=== PATIENT | female | born 1980 | race Asian ===

== ENCOUNTER 2016-11-29 13:10 | Inpatient (IN) | payer OTHER ==
[~2016-11-29] VITALS: Ht 162.6 cm; Wt 94.5 kg
[~2016-11-29 13:10] MED LIST: FER300 PO; IBUPROFEN800 MG PO; LAC PO; MAC100 PO; NEU300 PO
[2016-11-29 14:12] LABS: BASOPHIL % 0.5 % (0-2); PLATELET COUNT 329 x10^3mcL (130-400)
[2016-11-29 14:21] LABS: RED CELL DISTRIBUTION WIDTH 18.4 % (11.5-14.5)
[2016-11-29 14:22] LABS: CALCIUM 9.3 mg/dL (8.5-10.1); CARBON DIOXIDE 32.2 mmol/L (21-32); CHLORIDE SERUM 102 mmol/L (98-107); CREATININE SERUM 0.8 mg/dL (0.6-1.0); GFR1 > 60 mL/min; GLUCOSE SERUM 113 mg/dL (74-106); POTASSIUM SERUM 3.1 mmol/L (3.5-5.1); SODIUM SERUM 140 mmol/L (136-145)
[2016-11-29 14:27] LABS: ALBUMIN 3.7 g/dL (3.4-5.0); ALKALINE PHOSPHATASE 76 U/L (46-116); ALT/SGPT 17 U/L (14-59); AST/SGOT 11 U/L (15-37); BILIRUBIN TOTAL 0.42 mg/dL (0.20-1.00); TOTAL PROTEIN, SERUM 7.9 g/dL (6.4-8.2)
[2016-11-29 14:43] LABS: rbc morphology (normal/abnorm) ABNORMAL (NORMAL)
[2016-11-29 19:46] LABS: CHOLESTEROL/HDL RATIO 3.8; MAGNESIUM 1.8 mg/dL (1.8-2.4); PHOSPHOROUS 3.9 mg/dL (2.5-4.9)
[2016-11-29 19:53] LABS: T3 TOTAL 1.13 ng/mL
[2016-11-29 19:56] LABS: FREE T4 1.25 ng/dL (0.76-1.46); FREE THYROXINE INDEX 2.8 ug/dL (1.4-4.5); T4(THYROXINE) 8.8 ug/dL (4.7-13.3)
[2016-11-29 21:22] VITALS: BP 127/80
[2016-11-29] MEDS ORDERED: METFORMIN HCL1000 MG PO (21:47)
[2016-11-29 22:41] LABS: microscopic required? NO
[2016-11-29 22:47] LABS: urine erythrocyte NEGATIVE (NEGATIVE)
[2016-11-29 22:56] LABS: AMPHETAMINE QUAL UR NONE DETECTED (NEG <=1000)
[2016-11-30 00:29] VITALS: BP 115/67
[2016-11-30 01:00] VITALS: Ht 162.6 cm; Wt 94.5 kg
[2016-11-30 05:37] VITALS: BP 111/67
[2016-11-30 06:59] LABS: BASOPHIL % 0.2 % (0-2); PLATELET COUNT 352 x10^3mcL (130-400)
[2016-11-30 07:30] LABS: rbc morphology (normal/abnorm) ABNORMAL (NORMAL)
[2016-11-30 07:32] LABS: CALCIUM 8.8 mg/dL (8.5-10.1); CARBON DIOXIDE 27.2 mmol/L (21-32); CHLORIDE SERUM 103 mmol/L (98-107); CREATININE SERUM 0.6 mg/dL (0.6-1.0); GFR1 > 60 mL/min; GLUCOSE SERUM 145 mg/dL (74-106); POTASSIUM SERUM 3.7 mmol/L (3.5-5.1); SODIUM SERUM 138 mmol/L (136-145)
[2016-11-30 09:41] VITALS: BP 125/66
[2016-11-30 14:14] VITALS: BP 109/64
[2016-11-30 17:25] VITALS: BP 117/72
[2016-11-30 21:51] VITALS: BP 101/64
[2016-12-01 05:37] LABS: PLATELET COUNT 311 x10^3mcL (130-400)
[2016-12-01 06:02] LABS: ALBUMIN 3.1 g/dL (3.4-5.0); CALCIUM 8.5 mg/dL (8.5-10.1); CARBON DIOXIDE 27.8 mmol/L (21-32); CHLORIDE SERUM 107 mmol/L (98-107); CREATININE SERUM 0.7 mg/dL (0.6-1.0); GFR1 > 60 mL/min; GLUCOSE SERUM 151 mg/dL (74-106); SODIUM SERUM 141 mmol/L (136-145)
[2016-12-01 06:18] VITALS: BP 111/63
[2016-12-01 06:39] LABS: BASOPHIL % 0 % (0-2); RED CELL DISTRIBUTION WIDTH 18.8 % (11.5-14.5)
[2016-12-01 06:40] LABS: rbc morphology (normal/abnorm) ABNORMAL (NORMAL)
[2016-12-01 08:31] VITALS: BP 133/77
[2016-12-01 12:30] VITALS: BP 154/93
[2016-12-01 18:04] VITALS: BP 138/87
[2016-12-01 21:40] VITALS: BP 125/75
[2016-12-02 06:18] VITALS: BP 135/82
[2016-12-02 06:18] LABS: BASOPHIL % 0.2 % (0-2); PLATELET COUNT 262 x10^3mcL (130-400)
[2016-12-02 06:38] LABS: CARBON DIOXIDE 29.7 mmol/L (21-32); CHLORIDE SERUM 107 mmol/L (98-107); CREATININE SERUM 0.7 mg/dL (0.6-1.0); GFR1 > 60 mL/min; GLUCOSE SERUM 97 mg/dL (74-106); POTASSIUM SERUM 3.7 mmol/L (3.5-5.1); SODIUM SERUM 141 mmol/L (136-145)
[2016-12-02 06:39] LABS: RED CELL DISTRIBUTION WIDTH 19.7 % (11.5-14.5)
[2016-12-02 06:45] LABS: ALBUMIN 2.9 g/dL (3.4-5.0)
[2016-12-02 08:59] VITALS: BP 128/68
[2016-12-02 17:12] VITALS: BP 127/65
[2016-12-02 21:37] VITALS: BP 132/78
[2016-12-03 05:39] VITALS: BP 121/61
[2016-12-03 06:14] LABS: BASOPHIL % 0.3 % (0-2); PLATELET COUNT 239 x10^3mcL (130-400)
[2016-12-03 06:35] LABS: CALCIUM 8.2 mg/dL (8.5-10.1); CARBON DIOXIDE 31.4 mmol/L (21-32); CHLORIDE SERUM 105 mmol/L (98-107); CREATININE SERUM 0.6 mg/dL (0.6-1.0); GFR1 > 60 mL/min; GLUCOSE SERUM 102 mg/dL (74-106); POTASSIUM SERUM 3.5 mmol/L (3.5-5.1); SODIUM SERUM 142 mmol/L (136-145)
[2016-12-03 06:37] LABS: ALBUMIN 2.9 g/dL (3.4-5.0)
[2016-12-03 06:41] LABS: RED CELL DISTRIBUTION WIDTH 19.4 % (11.5-14.5)
[2016-12-03] MEDS ORDERED: COZAAR100 MG PO (10:05)
[2016-12-03] MEDS ORDERED: NATURAL IRON65 MG PO (10:05)
[2016-12-03] MEDS ORDERED: SINGULAIR10 MG PO (10:05)
[2016-12-03] MEDS ORDERED: VENTOLIN H0.09 MG/A1 INH (10:06)
[2016-12-03] MEDS ORDERED: QVAR INH (10:07)
[2016-12-03] MEDS ORDERED: HYDROCHLOROTHIA25 MG PO (10:08)
[2016-12-03] MEDS ORDERED: ZYRTEC10 MG PO (10:09)
[2016-12-03] MEDS ORDERED: NEU300 PO (10:09)
[2016-12-03] MEDS ORDERED: NIFEDIPINE60 MG PO (10:11)
[2016-12-03] MEDS ORDERED: SIMVASTATIN20 M1 PO (10:11)
[2016-12-03] MEDS ORDERED: PEPCID20 MG PO (10:12)
[2016-12-03] MEDS ORDERED: ZIT250 PO (10:14)
[2016-12-03] MEDS ORDERED: PREDNISONE10 MG PO (10:17)
[2016-12-03 10:59] VITALS: BP 113/72
[2016-12-03 11:02] VITALS: BP 113/72
[2016-12-03] MEDS ORDERED: LAC PO (11:54)
== END 2016-12-03 13:30 | disposition home or self-care (01) | DRG 140 ==
LOC: ED 13:10 → DU 18:43 → MU 18:43 → DU 19:56 → MU 11-30 17:25
PROVIDERS: Emergency Medicine; Family Medicine; ADMIT Family Medicine
DX: J44.0 Chronic obstructive pulmonary disease with (acute) lower respiratory infection (principal); N17.0 Acute kidney failure with tubular necrosis; J96.21 Acute and chronic respiratory failure with hypoxia; E87.3 Alkalosis; J18.9 Pneumonia, unspecified organism; E44.0 Moderate protein-calorie malnutrition; E11.9 Type 2 diabetes mellitus without complications; D64.9 Anemia, unspecified; I10 Essential (primary) hypertension; J44.1 Chronic obstructive pulmonary disease with (acute) exacerbation; E78.5 Hyperlipidemia, unspecified; E87.6 Hypokalemia; M54.12 Radiculopathy, cervical region; G47.33 Obstructive sleep apnea (adult) (pediatric); E66.9 Obesity, unspecified; Z68.35 Body mass index [BMI] 35.0-35.9, adult; K21.9 Gastro-esophageal reflux disease without esophagitis; M79.2 Neuralgia and neuritis, unspecified; Z88.8 Allergy status to other drugs, medicaments and biological substances; E78.1 Pure hyperglyceridemia; Z90.49 Acquired absence of other specified parts of digestive tract; Z91.013 Allergy to seafood
CPT/HCPCS: 36600; 80307; 82962; 83880; 84439; 85378; C9113; J0696; J1100; J1885; J2270; J2920; J2930; J3010; J7030; J7620; Q0092

== ENCOUNTER 2017-06-21 13:56 | Inpatient (IN) | payer OTHER ==
[~2017-06-21] VITALS: Ht 162.6 cm; Wt 94.0 kg
[~2017-06-21 13:56] MED LIST changes: +COZAAR100 MG PO; +HYDROCHLOROTHIA25 MG PO; +METFORMIN HCL1000 MG PO; +NATURAL IRON65 MG PO; +NIFEDIPINE60 MG PO; +PEPCID20 MG PO; +PREDNISONE10 MG PO; +QVAR INH; +SIMVASTATIN20 M1 PO; +SINGULAIR10 MG PO; +VENTOLIN H0.09 MG/A1 INH; +ZIT250 PO; +ZYRTEC10 MG PO
[2017-06-21 14:50] LABS: BASOPHIL % 0.2 % (0-2); PLATELET COUNT 294 x10^3mcL (130-400)
[2017-06-21 14:51] LABS: RED CELL DISTRIBUTION WIDTH 17.6 % (11.5-14.5)
[2017-06-21 14:58] LABS: CALCIUM 8.8 mg/dL (8.5-10.1); CARBON DIOXIDE 28.7 mmol/L (21-32); CHLORIDE SERUM 104 mmol/L (98-107); CREATININE SERUM 0.7 mg/dL (0.6-1.0); GFR1 > 60 mL/min; GLUCOSE SERUM 138 mg/dL (74-106); POTASSIUM SERUM 3.3 mmol/L (3.5-5.1); SODIUM SERUM 140 mmol/L (136-145)
[2017-06-21 15:05] LABS: ALKALINE PHOSPHATASE 68 U/L (46-116); ALT/SGPT 18 U/L (14-59); AST/SGOT 12 U/L (15-37); BILIRUBIN TOTAL 0.6 mg/dL (0.20-1.00); HDL CHOLESTEROL 39 mg/dL (40-60); PHOSPHOROUS 2.8 mg/dL (2.5-4.9); TOTAL PROTEIN, SERUM 7.5 g/dL (6.4-8.2); URIC ACID 4.8 mg/dL (2.6-6.0)
[2017-06-21 15:06] LABS: ALBUMIN 3.3 g/dL (3.4-5.0); CHOLESTEROL 134 mg/dL (<200)
[2017-06-21] MEDS ORDERED: BENADRYL ALLERG25 M1 (16:06)
[2017-06-21 16:36] LABS: microscopic required? NO
[2017-06-21 16:53] LABS: MAGNESIUM 1.7 mg/dL (1.8-2.4)
[2017-06-21 16:57] LABS: CHOLESTEROL/HDL RATIO 3.4
[2017-06-21 17:01] LABS: FREE T4 1.08 ng/dL (0.76-1.46); FREE THYROXINE INDEX 2.8 ug/dL (1.4-4.5); T3 TOTAL 0.97 ng/mL; T4(THYROXINE) 8.1 ug/dL (4.7-13.3)
[2017-06-21 17:06] LABS: UA SPECIFIC GRAVITY 1.015 (1.005-1.035); urine erythrocyte NEGATIVE (NEGATIVE)
[2017-06-21 17:46] VITALS: BP 145/85
[2017-06-21 19:30] VITALS: BP 145/85
[2017-06-21 19:44] LABS: TOTAL IRON BINDING CAPACITY 440 ug/dL (250-450)
[2017-06-21 19:45] LABS: IRON 32 ug/dL (50-170)
[2017-06-21 19:49] LABS: RED BLOOD CELLS 4.23 M/mm3 (4.10-5.10)
[2017-06-21 20:40] VITALS: BP 126/74
[2017-06-21 22:25] VITALS: BP 117/63
[2017-06-22 05:25] VITALS: BP 93/56
[2017-06-22 09:44] LABS: BASOPHIL % 0.6 % (0-2); PLATELET COUNT 253 x10^3mcL (130-400)
[2017-06-22 09:54] LABS: CALCIUM 8.4 mg/dL (8.5-10.1); CARBON DIOXIDE 29.3 mmol/L (21-32); CHLORIDE SERUM 105 mmol/L (98-107); CREATININE SERUM 0.6 mg/dL (0.6-1.0); GFR1 > 60 mL/min; GLUCOSE SERUM 142 mg/dL (74-106); MAGNESIUM 1.8 mg/dL (1.8-2.4); PHOSPHOROUS 3.6 mg/dL (2.5-4.9); POTASSIUM SERUM 4.2 mmol/L (3.5-5.1); SODIUM SERUM 140 mmol/L (136-145)
[2017-06-22 10:00] LABS: RED CELL DISTRIBUTION WIDTH 17.8 % (11.5-14.5)
[2017-06-22 10:26] VITALS: BP 102/53
[2017-06-22 14:28] VITALS: BP 126/63
[2017-06-22 18:26] VITALS: BP 138/79
[2017-06-22 22:37] VITALS: BP 139/80
[2017-06-23 06:05] VITALS: BP 118/72
[2017-06-23 07:21] LABS: BASOPHIL % 0.3 % (0-2); PLATELET COUNT 314 x10^3mcL (130-400); RED CELL DISTRIBUTION WIDTH 17.4 % (11.5-14.5)
[2017-06-23 07:32] LABS: ALBUMIN 3.1 g/dL (3.4-5.0); CALCIUM 8.2 mg/dL (8.5-10.1); CARBON DIOXIDE 28.8 mmol/L (21-32); CHLORIDE SERUM 103 mmol/L (98-107); CREATININE SERUM 0.6 mg/dL (0.6-1.0); GFR1 > 60 mL/min; GLUCOSE SERUM 145 mg/dL (74-106); POTASSIUM SERUM 4.2 mmol/L (3.5-5.1); SODIUM SERUM 137 mmol/L (136-145)
[2017-06-23 09:42] VITALS: BP 123/70
[2017-06-23] MEDS ORDERED: DULOXETINE HYDR60 MG PO (10:05)
[2017-06-23] MEDS ORDERED: AMB5 PO (10:05)
[2017-06-23] MEDS ORDERED: PREDNISONE10 MG PO (10:07)
== END 2017-06-23 15:10 | disposition home or self-care (01) | DRG 203 ==
LOC: ED 13:56 → DU 16:11
PROVIDERS: Emergency Medicine; Family Medicine; ADMIT Family Medicine
DX: M94.0 Chondrocostal junction syndrome [Tietze] (principal); J44.1 Chronic obstructive pulmonary disease with (acute) exacerbation; E44.1 Mild protein-calorie malnutrition; I10 Essential (primary) hypertension; D50.9 Iron deficiency anemia, unspecified; E11.9 Type 2 diabetes mellitus without complications; E83.42 Hypomagnesemia; F41.1 Generalized anxiety disorder; G47.33 Obstructive sleep apnea (adult) (pediatric); E87.6 Hypokalemia; E66.9 Obesity, unspecified; Z68.35 Body mass index [BMI] 35.0-35.9, adult; Z88.6 Allergy status to analgesic agent; Z91.013 Allergy to seafood; Z88.8 Allergy status to other drugs, medicaments and biological substances; Z91.018 Allergy to other foods; Z79.899 Other long term (current) drug therapy; Z90.49 Acquired absence of other specified parts of digestive tract; Z83.3 Family history of diabetes mellitus; Z82.49 Family history of ischemic heart disease and other diseases of the circulatory system; Z80.9 Family history of malignant neoplasm, unspecified
CPT/HCPCS: 36600; 82962; 83880; 84439; 90658; 90732; 94150; J2270; J2405; J2550; J2916; J2930; J3010; J7030; J7620; Q0092